=== PATIENT | female | born 1985 | race Caucasian/White ===

== ENCOUNTER 2018-03-05 20:42 | Emergency (ER) | payer OTHER ==
--- NOTE | 2018-03-05 21:03 | PDOC ---
Rapid Medical Evaluation Chief Complaint: Carbon Monoxide Exposure Time Seen by Provider: 03/05/18 20:59 Medical Evaluation: 03/05/18 21:00 c/o carbon monoxide exposure from a slow gas leak at home. patient reports feeling nauseous. PE: patient alert ox3. breath sounds clear. A; carbon monoxide exposure P; ABG, oxygen patient to the ER for further management of care. 03/05/18 21:03 Discharge Disposition - Diagnosis Carbon monoxide exposure - Referrals - Patient Instructions - Post Discharge Activity
[2018-03-05 21:04] VITALS: BMI 29.2
[2018-03-05 22:28] LABS: ARTERIAL BLOOD GAS pH 7.39 (7.35-7.45); CARBOXYHEMOGLOBIN 1.7 gm% (0.5-2.0)
[2018-03-05 22:31] LABS: ALLENS TEST POSITIVE
[2018-03-05 22:32] LABS: ARTERIAL BLD GAS O2 SATURATION 66.2 % (90-98.9)
--- NOTE | 2018-03-05 22:53 | PDOC ---
History of Present Illness - General History Source: Patient Exam Limitations: No Limitations - History of Present Illness Initial Comments: 03/05/18 23:52 The patient is a 32-year-old female, with no past medical history, who presents to the ED for possible carbon monoxide exposure. Patient reports experiencing nausea and headache on Saturday that is now resolved. She has no current complaints. The patient denies any fever, chills, cough, vomiting, abdominal pain. Denies any shortness of breath or chest pain. Allergies: NKA Surgical History: . <Jennie Guerra - Last Filed: 03/05/18 23:52> <Sindy Lewis - Last Filed: 03/06/18 01:51> - General Chief Complaint: Carbon Monoxide Exposure Stated Complaint: R/O CO2 Time Seen by Provider: 03/05/18 20:59 Past History <Jennie Guerra - Last Filed: 03/05/18 23:52> - Past Medical History COPD: No Other medical history: Pt denies - Suicide/Smoking/Psychosocial Hx Smoking History: Never smoked Have you smoked in the past 12 months: No Information on smoking cessation initiated: No Hx Alcohol Use: No Drug/Substance Use Hx: No Substance Use Type: None <Sindy Lewis - Last Filed: 03/06/18 01:51> - Past Medical History Allergies/Adverse Reactions: Allergies Allergy/AdvReac Type Severity Reaction Status Date / Time No Known Allergies Allergy Verified 03/05/18 21:02 Review of Systems - Review of Systems Able to Perform ROS?: Yes Comments:: 03/05/18 23:56 GENERAL/CONSTITUTIONAL: No fever or chills. No weakness. HEAD, EYES, EARS, NOSE AND THROAT: No change in vision. No ear pain or discharge. No sore throat. CARDIOVASCULAR: No chest pain or shortness of breath. RESPIRATORY: No cough, wheezing, or hemoptysis. GASTROINTESTINAL: No nausea, vomiting, diarrhea or constipation. GENITOURINARY: No dysuria, frequency, or change in urination. MUSCULOSKELETAL: No joint or muscle swelling or pain. No neck or back pain. SKIN: No rash NEUROLOGIC: No headache, vertigo, loss of consciousness, or change in strength/ sensation. ENDOCRINE: No increased thirst. No abnormal weight change. HEMATOLOGIC/LYMPHATIC: No anemia, easy bleeding, or history of blood clots. ALLERGIC/IMMUNOLOGIC: No hives or skin allergy. <Jennie Guerra - Last Filed: 03/05/18 23:52> *Physical Exam - Vital Signs Last Vital Signs Temp Pulse Resp BP Pulse Ox 99.3 F 110 H 20 149/88 98 03/05/18 21:03 03/05/18 21:03 03/05/18 21:03 03/05/18 21:03 03/05/18 21:03 - Physical Exam Comments: 03/05/18 23:56 GENERAL: Awake, alert, and fully oriented, in no acute distress HEAD: No signs of trauma EYES: PERRLA, EOMI, sclera anicteric, conjunctiva clear ENT: Auricles normal inspection, hearing grossly normal, nares patent, oropharynx clear without exudates. Moist mucosa NECK: Normal ROM, supple, no lymphadenopathy, JVD, or masses LUNGS: Breath sounds equal, clear to auscultation bilaterally. No wheezes, and no crackles HEART: Regular rate and rhythm, normal S1 and S2, no murmurs, rubs or gallops ABDOMEN: Soft, nontender, normoactive bowel sounds. No guarding, no rebound. No masses EXTREMITIES: Normal range of motion, no edema. No clubbing or cyanosis. No cords, erythema, or tenderness NEUROLOGICAL: Cranial nerves II through XII grossly intact. Normal speech, normal gait SKIN: Warm, Dry, normal turgor, no rashes or lesions noted. <Jennie Guerra - Last Filed: 03/05/18 23:52> - Vital Signs Last Vital Signs Temp Pulse Resp BP Pulse Ox 99.3 F 110 H 20 149/88 98 03/05/18 21:03 03/05/18 21:03 03/05/18 21:03 03/05/18 21:03 03/05/18 21:03 <Sindy Lewis - Last Filed: 03/06/18 01:51> ED Treatment Course - ADDITIONAL ORDERS Additional order review: Laboratory Results 03/05/18 03/05/18 22:55 22:05 Anticoagulation Therapy No Result Required. Puncture Site Right radial Left radial ABG pH 7.39 7.39 ABG pCO2 at Pt Temp 33.7 L 40.0 ABG pO2 at Pt Temp 44.1 L* D 36.0 L* ABG HCO3 20.0 L 23.4 ABG O2 Sat (Measured) 78.7 L 66.2 L* ABG O2 Content 13.0 L 12.6 L ABG Base Excess -3.7 L -1.0 Pb Test Positive Positive Carboxyhemoglobin 1.8 1.7 Methemoglobin 1.7 H 1.4 O2 Delivery Device No Result Required. Oxygen Flow Rate Room air No Result Required. Vent Mode No Result Required. Room air Vent Rate No Result Required. Mechanical Rate No Result Required. Pressure Support Vent No Result Required. <Jennei Guerra - Last Filed: 03/05/18 23:52> - ADDITIONAL ORDERS Additional order review: Laboratory Results 03/05/18 22:05 Puncture Site Left radial ABG pH 7.39 ABG pCO2 at Pt Temp 40.0 ABG pO2 at Pt Temp 36.0 L* ABG HCO3 23.4 ABG O2 Sat (Measured) 66.2 L* ABG O2 Content 12.6 L ABG Base Excess -1.0 Pb Test Positive Carboxyhemoglobin 1.7 Methemoglobin 1.4 Oxygen Flow Rate No Result Required. Vent Mode Room air <Sindy Lewis - Last Filed: 03/06/18 01:51> Medical Decision Making - Medical Decision Making 03/05/18 22:49 a/p: 32yo female with carbon monoxide exposure -had solitario and nausea last saturday - but none since -currently denies all complaints -will send abg 03/05/18 22:50 abg sent - suspect vbg was obtained -will repeat abg secondary to low oxygenation -pt updated -agrees with repeat abg -will continue to monitor and reassess 03/05/18 23:16 repeat abg shows low o2% will place on NRB 03/06/18 01:47 pt feeling better has been ambulatory in the Ed will repeat abg <Sindy Lewis - Last Filed: 03/06/18 01:51> *DC/Admit/Observation/Transfer - Attestations Scribe Attestion: 03/05/18 23:56 Documentation prepared by Jennie Guerra, acting as medical or surgical instrument maker for Sindy Lewis DO. <Jennie Guerra - Last Filed: 03/05/18 23:52> - Discharge Dispostion Decision to Admit order: No - Attestations Physician Attestion: 03/06/18 01:51 I, Dr. Sindy Lewis, DO, attest that this document has been prepared under my direction and personally reviewed by me in its entirety. I further attest, that it accurately reflects all work, treatment, procedures and medical decision -making performed by me. <Sindy Lewis - Last Filed: 03/06/18 01:51> Diagnosis at time of Disposition: Carbon monoxide exposure - Discharge Dispostion Disposition: HOME Condition at time of disposition: Stable - Referrals Referrals: Pierce Bowles MD [Staff Physician] - - Patient Instructions Printed Discharge Instructions: Carbon Monoxide Poisoning Additional Instructions: Please do not return to the house until cleared by [facility]. Please return to the ED with any further concerns or complaints. Please follow up with your PMD.
[2018-03-05 23:09] LABS: ARTERIAL BLD GAS O2 SATURATION 78.7 % (90-98.9); ARTERIAL BLOOD GAS BASE EXCESS -3.7 meq/l (-2-2); ARTERIAL BLOOD GAS PCO2 33.7 mmHg (35-45); ARTERIAL BLOOD GAS pH 7.39 (7.35-7.45); CARBOXYHEMOGLOBIN 1.8 gm% (0.5-2.0)
[2018-03-05 23:11] LABS: ALLENS TEST POSITIVE
[2018-03-05 23:14] LABS: ARTERIAL BLOOD GAS PO2 44.1 mmHg (80-100)
[2018-03-06 01:54] LABS: ARTERIAL BLD GAS O2 SATURATION 98.1 % (90-98.9); ARTERIAL BLOOD GAS BASE EXCESS -2.9 meq/l (-2-2); ARTERIAL BLOOD GAS pH 7.39 (7.35-7.45); CARBOXYHEMOGLOBIN 1.4 gm% (0.5-2.0)
[2018-03-06 01:55] LABS: ALLENS TEST POSITIVE
[2018-03-06 02:07] VITALS: BP 142/84; PULSE 91; TEMP 98.8
== END 2018-03-06 02:07 | disposition home or self-care (01) ==
LOC: JERFT 20:42
DX: Z77.29 Contact with and (suspected) exposure to other hazardous substances (principal)
CPT/HCPCS: 36600; 82375; 82803; 83050; 99282-25